=== PATIENT | male | born 1945 | race Caucasian/White ===

== ENCOUNTER → 2020-10-17 16:27 | Outpatient (CLI) | payer MEDICARE, OTHER, SELFPAY ==
--- NOTE | 2020-10-17 16:32 | DI.MRI.S_ITS ---
PROCEDURE: MR CERVICAL SPINE WO CON INDICATIONS: RADICULOPATHY,CERVICAL REGION TECHNIQUE: Noncontrast sagittal T1 spin echo and T2 fast spin echo, sagittal STIR, foraminal oblique sagittal T2 fast spin echo, and axial gradient echo or T2 fast spin echo through the cervical spine. COMPARISON: None. FINDINGS: Image quality: Excellent. Alignment and Curvature: There is normal bony alignment. Bone Marrow: Mild reactive endplate changes noted adjacent to the C6-C7 disc. Spinal Cord: Visualized spinal cord has normal size and signal. No cerebellar tonsillar herniation. Paraspinous Soft Tissues: No paravertebral masses. Prevertebral soft tissues are normal in thickness. C2-C3: Slight loss of disc signal. No central stenosis. No neural foraminal narrowing. No neural compression. C3-C4: Slight loss of disc signal. Mild, diffuse disc bulge. Mild bilateral facet hypertrophy. Mild left uncovertebral joint hypertrophy. No central stenosis. Moderate right and severe left neural foraminal narrowing with compression of the exiting left C4 nerve root. C4-C5: Loss of disc signal. Mild bilateral facet hypertrophy. No central stenosis. Mild bilateral neural foraminal narrowing. No neural compression. C5-C6: Loss of disc signal and height. Mild, diffuse disc bulge. Mild bilateral facet hypertrophy. Mild narrowing of the central canal. Mild right and moderate left neural foraminal narrowing. No neural compression. C6-C7: Loss of disc signal and height. Mild, diffuse disc bulge. Mild bilateral facet hypertrophy. Mild right uncovertebral joint hypertrophy. Mild narrowing of the central canal. Severe right and mild left neural foraminal narrowing with compression of the exiting right C7 nerve root. C7-T1: Loss of disc signal. No central stenosis. No neural foraminal narrowing. No neural compression. IMPRESSION: 1. Multilevel degenerative disc disease. 2. Multilevel facet and uncovertebral arthropathy. 3. No significant central canal narrowing. 4. Severe left C3-C4 neural foraminal narrowing with compression of the exiting left C4 nerve root. Severe right C6-C7 neural foraminal narrowing with compression of the exiting right C7 nerve root. Dictated by: Elaine Maciel MD, PhD on 10/20/2020 at 11:31 Approved by: Elaine Maciel MD, PhD on 10/20/2020 at 11:38
== END ==
PROVIDERS: Family Provider Family Medicine; PCP Internal Medicine; Referring Provider Internal Medicine
DX: M47.22 Other spondylosis with radiculopathy, cervical region (principal); M50.11 Cervical disc disorder with radiculopathy, high cervical region; M48.02 Spinal stenosis, cervical region
CPT/HCPCS: 72141

== ENCOUNTER → 2024-03-08 17:22 | Outpatient (CLI) | payer MEDICARE, OTHER, SELFPAY ==
--- NOTE | 2024-03-08 17:25 | DI.RAD.S_ITS ---
PROCEDURE: XR FOOT RT MIN 3V INDICATIONS: FOOT PAIN TECHNIQUE: 4 views of the foot were acquired. COMPARISON: None. FINDINGS: Bones: No fractures or dislocations. Bipartite medial sesamoid of 1st metatarsal head is seen. [id number] hallux valgus. Osteoarthritic changes are noted throughout right foot. Finding is most notably involving talonavicular joint. Well-defined dorsal calcaneal enthesophyte is seen. No suspicious bony lesions. Soft tissues: No tibiotalar joint effusion. Achilles tendon appears normal. IMPRESSION: [id number] hallux valgus. Osteoarthritic changes throughout right foot more notably at talonavicular joint. No acute fracture or dislocation. Well-defined dorsal calcaneal enthesophyte. No gross soft tissue abnormalities. Dictated by: Robin Sesay M.D. on 03/09/2024 at 11:01 Approved by: Robin Sesay M.D. on 03/09/2024 at 11:02
== END ==
PROVIDERS: Family Provider Family Medicine; PCP Nurse Practitioner; Referring Provider Podiatrist Foot & Ankle Surgery; Visit Provider Podiatrist Foot & Ankle Surgery
DX: M20.11 Hallux valgus (acquired), right foot (principal); M21.611 Bunion of right foot
CPT/HCPCS: 73630

== ENCOUNTER 2024-07-03 07:30 | Day surgery (SDC) | payer MEDICARE, OTHER, SELFPAY ==
[2024-07-03] VITALS (10 sets, daily range): BP systolic 126–166; BP diastolic 71–85; PULSE 59–101; RESP 10–16; TEMP 36.4–36.7; O2SAT 91–99; BMI 26.6
--- NOTE | 2024-07-03 06:48 | P.HP_ITS ---
History of Present Illness History of Present Illness Chief complaint: Right Toe Fusion/Bunionectomy Narrative: 78 year old male here for right great toe overlapping middle toe. Patient states duration of 10-20 years. Condition is worsening. Patient would like to have it fixed before symptoms of Parkinson's get worse. Patient has 3 years of neuropathy symptoms that have been progressive as well. 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 Patient denies n/v/f/c/sob/cp. PFSH Social History household members: spouse Meds Home Medications and Allergies Home Medications Medication Instructions Recorded Confirmed Type Tavapadon 10 mg PO DAILY 07/02/24 History allopurinol 100 mg tablet 200 mg PO DAILY 07/02/24 07/02/24 History ezetimibe 10 mg tablet 10 mg PO DAILY 07/02/24 07/02/24 History losartan 100 mg tablet 50 mg PO DAILY 07/02/24 07/02/24 History metformin 500 mg tablet,extended 500 mg PO DAILY 07/02/24 07/02/24 History release 24 hr Allergies Allergy/AdvReac Type Severity Reaction Status Date / Time No Known Drug Allergies Allergy Verified 07/02/24 11:51 Exam Neuro Other: Right foot: gross sensations intact. Extrem Other: Right foot: moderate hallux abducto valgus with tracking deformity. Assessment & Plan Assessment & Plan narrative: 1. Right foot bunion Patient seen and evaluated. Surgical plan: right foot Lapidus arthrodesis with Clarence osteotomy. Risks and benefits of the procedure discussed with all questions answered to patient's satisfaction. Reviewed potential complications that may include but not limited to the following: DVT, failure to resolve all symptoms, infection, nerve injury, bleeding, recurrence, or wound. Reviewed surgical technique and general aftercare protocols. All questions answered to patient's satisfaction with no guarantees made. Patient verbalized understanding and agreed with surgical plan. RTC for post-op. Time-Based Coding :: [TOTAL MINUTES] spent with patient and on the chart (including review of chart, obtaining history, exam, reviewing outside data, placing orders, documenting exam and treatment plan, and counseling patient) on [DATE].
--- NOTE | 2024-07-03 06:53 | PM.PREOP ---
Pre-operative Note Interval Note History & Physical reviewed/Exam performed by Physician: Yes Changes to H&P: No
[2024-07-03] MEDS: LACTATED RINGERS 1,000 ML 42 ML IV ×2 (08:31→12:44)
--- NOTE | 2024-07-03 09:01 | SUR.OPER ---
Supine on padded OR bed, head on pillow, arms secured on padded arm boards at <90 degrees abduction, legs uncrossed, safety belt at thigh, tape over blanket over lower legs.
[2024-07-03] MEDS: CEFAZOLIN 2 GM/100 ML PREMIX 100 ML IV (09:24)
--- NOTE | 2024-07-03 10:02 | SUR.OPER ---
Supine on padded OR bed, head on pillow, arms secured on padded arm boards at <90 degrees abduction, legs uncrossed, safety belt at waist, tape over blanket over lower left leg, right leg drapped free with gel bump under right hip.
[2024-07-03] MEDS: BUPIVACAINE 0.25% (PF) VIAL 30 ML INJ (10:16)
[2024-07-03] MEDS: BUPIVACAINE LIPOSOME 266 MG/20 ML VIAL INJ (10:18)
[2024-07-03] MEDS: VANCOMYCIN 1,000 MG VIAL 1000 MG INTRA-ARTI (13:03)
[2024-07-03] MEDS: ONDANSETRON 4 MG/2 ML INJ IV ×2 (14:43→15:09)
[2024-07-03] MEDS: ACETAMINOPHEN 325 MG TABLET 1000 MG PO (14:45)
[2024-07-03] MEDS: hydrOXYzine 50 MG/ML INJ 25 MG IM (15:01)
--- NOTE | 2024-07-03 15:42 | SUR.PHASEII ---
Late entry: at 1500, patient complains of nausea still; small amount of emesis; re-medicated. Patient also states that he needs to void but is unable to do so lying down in the bed. Assisted patient to bedside commode with help of additional staff member. Patient unable to void to the bedside commode after about 10 minutes[address] Placed patient back in bed; bladder scan performed which reveals greater than 200; abdomen soft and flat. Warm blankets given. Notified patient that we would let him rest a bit and then try to void again. Updated in the waiting room.
--- NOTE | 2024-07-03 15:47 | SUR.PHASEII ---
Patient resting with eyes closed. RR even and unlabored.
--- NOTE | 2024-07-03 16:43 | SUR.PHASEII ---
Patient more awake and alert after resting; stretcher noted to have urine soaked. Patient voided while asleep. Assisted to bathroom to void again and discharged home in stable condition. All instructions reviewed with and patient. Home in stable condition.
--- NOTE | 2024-07-08 22:22 | P.OP_ITS ---
Operative Date/Time/Diagnoses Date of procedure: 07/03/24 Pre-op diagnosis: 1. Right foot first tarsometatarsal flail joint 2. Right foot hallux valgus Post-op diagnosis: same Procedure & Clinicians Procedure: 1. Right foot first tarsometatarsal arthrodesis 2. Right foot hallux valgus correction, proximal phalanx osteotomy and EHL tendon lengthening Same procedure as scheduled: Yes Indications: Progressive pain and dysfunction Surgeon: Carlos A Connors Click Yes if Unassisted: Yes Anesthesia Type: General Operative Notes Findings: Consistant with diagnosis Closure Type: primary Specimen(s): none sent Estimated Blood Loss (mL): 20 Blood products transfused: none Tourniquet time (min): 173 Procedure in detail: The patient was brought to the operating room and placed on the operating room table in the supine position. Local anesthesia was administered using 0.25% marcaine plain. A thigh tourniquet was applied over well-padded surface, which was set and inflated to 250 mmHg prior to incision. The right lower limb was then prepped and draped in the usual sterile fashion, followed by official timeout with the surgical team all in agreement. Attention was directed to the right midfoot at medial first ray where a linear incision was using a #15 scalpel. Dissection was carried out in layers from skin down to the joint and bone with care for retract and protect neurovascular structures. The first tarsometatarsal joint was identified and sharply released. The joint was then distracted, which allowed for removal of the cartilage using sagittal saw and rasp on power, followed by fenestration using drill on power. Attention was then directed to the right forefoot dorsal first ray where a linear incision was made over lateral first metatarsophalangeal joint using a # 15 scalpel for lateral release of suspensory ligament. The incision was then extended to the dorsal second metatarsal head in a S fashion for placement of the rotational guide for frontal plane alignment. After adequate position was achieved, attention was then redirected to the he first tarsometatarsal joint with temporary fixation using K-wires after filling with bone allograft and chips. Decision was made to proceed with Arthrex plantar plate, which was contoured and fixated per manufacture instructions using appropriate screws. An additional lag screw was added from dorsal to plantar. Alignment and construct were verified on fluoroscopy Attention was then directed back to the right forefoot. A linear incision was made using # 15 scalpel over the hallux. Decision was made to perform Z- lengthening of extensor hallucis longus tendon and transfer of extensor hallucis brevis tendon both held with 2-0 vicryl. A medal based wedge osteotomy of the proximal phalanx was then performed, and the gap was closed using a staple. All surgical sites were irrigated using copious saline and closed from deep to superficial in layers using 2-0 vicryl, 3-0 vicryl, 4-0 vicryl, 3-0 nylon, and 4-0 nylon. Bupivacaine liposome was administered for post-op block. Right foot was cleaned, and sterile dressing was applied over incision site with iodine soaked Adaptic, gauze, abdominal pad, and Kerlix. A posterior splint was made and secured with DENA bandages. Patient tolerated procedure without complication and was transferred to post- anesthesia care unit with all vital signs stable. Complications: none Post-operative Condition: stable Disposition: same day surgery Plan for aftercare: Non weight-bearing to surgical limb. Keep dressing clean, dry, and intact. Elevate above heart on two or more pillows.
== END 2024-07-03 16:45 | disposition home or self-care (01) ==
PROVIDERS: Family Provider Family Medicine; PCP Nurse Practitioner; Referring Provider Podiatrist Foot & Ankle Surgery; Visit Provider Podiatrist Foot & Ankle Surgery
PROC: (CPT 28740; principal; 2024-07-03 09:15)
PROC: 0QBN0ZZ Excision of Right Metatarsal, Open Approach (ICD-10-PCS; CPT 28292; 2024-07-03 09:15)
DX: M25.271 Flail joint, right ankle and foot (principal); M21.611 Bunion of right foot
CPT/HCPCS: 28740; 28298; 82962; C1713; C9290; J0690; J1171; J2405; J2704; J3010; J3410

== ENCOUNTER → 2024-07-17 10:50 | Outpatient (CLI) | payer MEDICARE, OTHER, SELFPAY ==
--- NOTE | 2024-07-17 10:52 | DI.RAD.S_ITS ---
PROCEDURE: XR FOOT RT MIN 3V INDICATIONS: Encounter for other orthopedic aftercare TECHNIQUE: 3 views of the foot were acquired. COMPARISON: [facility], CR, XR FOOT RT MIN 3V, 03/08/2024, 17:31. FINDINGS: Bones: Instrumented 1st tarsometatarsal arthrodesis as well as 1st proximal phalangeal osteotomy show dense of healing as well as improved alignment of the 1st digital ray. No hardware failure. Soft tissues: No tibiotalar joint effusion. Achilles tendon appears normal. IMPRESSION: Instrumented 1st TMT arthrodesis and 1st proximal phalangeal osteotomy without evidence of complication Approved by: Too Parnell M.D. on 07/18/2024 at 7:56
== END ==
LOC: RAD 10:51
PROVIDERS: Family Provider Family Medicine; PCP Nurse Practitioner; Referring Provider Podiatrist Foot & Ankle Surgery; Visit Provider Podiatrist Foot & Ankle Surgery
DX: Z47.89 Encounter for other orthopedic aftercare (principal)
CPT/HCPCS: 73630

== ENCOUNTER → 2024-08-02 08:57 | Outpatient (CLI) | payer MEDICARE, OTHER, SELFPAY ==
--- NOTE | 2024-08-02 09:03 | DI.RAD.S_ITS ---
PROCEDURE: XR FOOT RT MIN 3V INDICATIONS: Pain in right foot TECHNIQUE: Weight bearing 3 views of the foot were acquired. COMPARISON: [facility], , XR FOOT RT MIN 3V, 07/17/2024, 10:53. FINDINGS: Bones: Stable 1st MTP joint osteoarthritis and 1st proximal phalange osteotomy staple. No fractures or dislocations. No suspicious bony lesions. Mild midfoot and tibiotalar joint osteoarthritis. Dorsal calcaneal bone spur. Soft tissues: No tibiotalar joint effusion. Achilles tendon appears normal. IMPRESSION: No acute bony abnormality. Dictated by: Elaine Maciel MD, PhD on 08/02/2024 at 9:51 Approved by: Elaine Maciel MD, PhD on 08/02/2024 at 9:53
== END ==
PROVIDERS: Family Provider Family Medicine; PCP Nurse Practitioner; Referring Provider Podiatrist Foot & Ankle Surgery; Visit Provider Podiatrist Foot & Ankle Surgery
DX: M19.071 Primary osteoarthritis, right ankle and foot (principal); M77.31 Calcaneal spur, right foot; M79.671 Pain in right foot
CPT/HCPCS: 73630

== ENCOUNTER → 2024-08-30 09:31 | Outpatient (CLI) | payer MEDICARE, OTHER, SELFPAY ==
--- NOTE | 2024-08-30 09:35 | DI.RAD.S_ITS ---
PROCEDURE: XR FOOT RT MIN 3V INDICATIONS: FOOT PAIN TECHNIQUE: 3 views of the foot were acquired. COMPARISON: [facility], CR, XR FOOT RT MIN 3V, 08/02/2024, 9:03. FINDINGS: Bones/joints: 1st MTT arthrodesis supported by plantar plate and screws appreciated. Alignment is anatomic. Joint line remains visualized thus fusion is incomplete. Periarticular calcifications noted. The most proximal screw, supporting the plate, is fractured. There is also a single stable transfixing a 1st proximal phalangeal osteotomy which is subtotally unified in near anatomically aligned. Shaving of the 1st metatarsal head noted. Hammertoe deformities 2nd through 5th digits appreciated. Malunified old fracture of the dorsal navicular seen on lateral view Joints: The remaining joint spaces are normal in width and alignment without arthritic change. Soft tissues: Moderate calcification of the Achilles tendon insertion on the calcaneus. Moderate diffuse soft swelling noted. IMPRESSION: Moderate diffuse soft swelling -more likely edema than cellulitis. Chronic findings -as described Dictated by: Antoine Begum M.D. on 08/31/2024 at 10:33 Approved by: Antoine Begum M.D. on 08/31/2024 at 10:37
== END ==
PROVIDERS: Family Provider Family Medicine; PCP Nurse Practitioner; Referring Provider Podiatrist Foot & Ankle Surgery; Visit Provider Podiatrist Foot & Ankle Surgery
DX: Z48.810 Encounter for surgical aftercare following surgery on the sense organs (principal); M79.671 Pain in right foot; M79.89 Other specified soft tissue disorders
CPT/HCPCS: 73630

== ENCOUNTER → 2024-10-09 11:09 | Outpatient (CLI) | payer MEDICARE, OTHER, SELFPAY ==
--- NOTE | 2024-10-09 11:12 | DI.RAD.S_ITS ---
PROCEDURE: XR FOOT RT MIN 3V INDICATIONS: FOOT PAIN TECHNIQUE: 3 views of the foot were acquired. COMPARISON: [facility], CR, XR FOOT RT MIN 3V, 08/30/2024, 9:32. FINDINGS: Bones: 1st tarsometatarsal arthrodesis with plate and screw instrumentation in good position. First proximal phalangeal instrumented osteotomy noted as well. Hardware all in good position without evidence of failure Soft tissues: No tibiotalar joint effusion. Achilles tendon appears normal. IMPRESSION: Well-positioned instrumented 1st TMT arthrodesis and 1st phalangeal osteotomy Approved by: Too Parnell M.D. on 10/09/2024 at 18:00
== END ==
PROVIDERS: Family Provider Family Medicine; PCP Nurse Practitioner; Referring Provider Podiatrist Foot & Ankle Surgery; Visit Provider Podiatrist Foot & Ankle Surgery
DX: M79.671 Pain in right foot (principal); Z98.1 Arthrodesis status
CPT/HCPCS: 73630